=== PATIENT | male | born 1955 | race Caucasian/White ===

== ENCOUNTER → 2016-12-16 | Outpatient (CLI) | payer BC ==
--- NOTE | 2016-12-23 18:38 | PCVCIMAG ---
APPROVED REPORT Exam: Stress Echocardiogram Indication: Chest pressure elev cor ca score,abn ekg Patient Location: Echo lab Stress Nurse: Lucretia Davis RN Status: routine HR: 90 bpm Rhythm: NSR Medical History Pretest Chest Pain Characteristics: No chest pain Exercise History: Physically active Procedure The patient underwent an Exercise Stress Test using the Fredis Protocol. Blood pressure, heart rate, and EKG were monitored. An Echocardiogram was performed by exercise equipment repair technician in four stages in quad fashion. At peak stress, four selected images were obtained and placed side by side with resting images for comparison. Stress Test Details Stress Test: Exercise stress testing was performed using a Fredis protocol. HR Resting HR: 90 bpmMax Heart Rate (APMHR): 161 bpm Max HR Achieved: 176 bpmTarget HR (85% APMHR): 136 bpm % of APMHR: 109 Recovery HR: 97 bpm HR response to stress: Normal HR response to stress BP Resting BP: 146/92 mmHg Max BP: 160/82 mmHg Recovery BP: 120/76 mmHg ECG Resting ECG: Sinus Rhythm Stress ECG: Sinus Rhythm, incomplete RBBB ST Change: Non-ischemic Maximum ST Deviation: 1.25 mm Arrhythmia: None Recovery ECG: Sinus Rhythm Clinical Reason for Termination: Maximal effort Stress Symptoms: none Exercise duration: 13 min sec Highest Stage Achieved: Stage 5: 5.0 mph at 18% grade. Exercise capacity: 17.2 METs Overall Exercise Capacity for Age: Excellent Scale: Active Angina Score: None Stress ECG Conclusion [place] Treadmill Score is 6.8 which is Low risk. Pre-Stress Echo The resting Echocardiogram showed normal left ventricular contractility with an estimated Ejection Fraction of about >55%. Normal wall motion in all segments on baseline images.. Post-Stress Echo The stress Echocardiogram showed normal left ventricular contractility with an estimated Ejection Fraction of about 60-65%. The stress Echocardiogram demonstrated wall motion abnormality in the septal wall re rhythm . Normal augmentation of wall motion in all segments on post stress images. Conclusion Clinical Response: Non-ischemic Exercise Capacity: Superior Stress ECG Response: Non-ischemic Stress Echo Images: Non-ischemic No clinical, EKG or echocardiographic evidence for ischemia. No echocardiographic evidence for exercise induced ischemia. <Conclusion> No clinical, EKG or echocardiographic evidence for ischemia. No echocardiographic evidence for exercise induced ischemia.
== END | disposition home or self-care (01) ==
LOC: PCVCIMAG 10:32
PROVIDERS: ATTEND Internal Medicine Cardiovascular Disease
DX: I45.10 Unspecified right bundle-branch block (principal); R94.31 Abnormal electrocardiogram [ECG] [EKG]; E83.52 Hypercalcemia; E78.00 Pure hypercholesterolemia, unspecified; Z82.49 Family history of ischemic heart disease and other diseases of the circulatory system; Z79.82 Long term (current) use of aspirin
CPT/HCPCS: 93325; 93351